=== PATIENT | male | born 1950 | race Caucasian/White ===

== ENCOUNTER 2017-08-18 05:55 | Inpatient (IN) | payer OTHER, MEDICARE ==
[~2017-08-18] VITALS: Ht 195.6 cm; Wt 119.0 kg
[2017-08-18 06:45] VITALS: BP 130/82
[2017-08-18] MEDS ORDERED: THROMBIN 5,000 UNIT VIAL TP ONE (07:07)
[2017-08-18] MEDS ORDERED: LIDOCAINE/PF 0.5% ,50ML ONE (07:07)
[2017-08-18] MEDS ORDERED: EPINEPHRINE 1 MG/ML, 1ML ONE (07:08)
[2017-08-18] MEDS ORDERED: VANCOMYCIN 1,000 MG ONE (07:08)
[2017-08-18] MEDS ORDERED: LISI-170 PO (07:17)
[2017-08-18] MEDS ORDERED: MELO15TA24 PO (07:18)
[2017-08-18] MEDS ORDERED: PROPOFOL 50 ML ONE (07:20)
[2017-08-18] MEDS ORDERED: FENTANYL PF 250 MCG/5ML ONE (07:20)
[2017-08-18] MEDS ORDERED: KETAMINE 10 MG/ML, 20ML ONE (07:20)
[2017-08-18] MEDS ORDERED: MIDAZOLAM 1 MG/ML, 2ML ONE (07:20)
[2017-08-18] MEDS ORDERED: LIDOCAINE GEL 2%, 5ML ONE (07:23)
[2017-08-18] MEDS ORDERED: LACTATED RINGERS 1,000 ML IV SCH (07:29)
[2017-08-18] MEDS ORDERED: hydrALAzine 20 MG/ML, 1ML IV PRN (07:30)
[2017-08-18] MEDS ORDERED: DIAZEPAM 5 MG/ML, 2ML IVPush PRN (07:30)
[2017-08-18] MEDS ORDERED: PROMETHAZINE 25 MG/ML, 1ML IV PRN (07:30)
[2017-08-18] MEDS ORDERED: ONDANSETRON 2MG/ML, 2ML IVPush PRN (07:30)
[2017-08-18] MEDS ORDERED: OXYcodone 5 MG/5 ML ORAL.SOL UDC PO PRN (07:30)
[2017-08-18] MEDS ORDERED: MEPERIDINE/PF 25MG/0.5ML IVPush PRN (07:30)
[2017-08-18] MEDS ORDERED: METOCLOPRAMIDE 5 MG/ML, 2ML IV PRN (07:30)
[2017-08-18] MEDS ORDERED: ALBUTEROL/IPRATROPIUM 2.5MG/0.5MG, 3 ML NPPB PRN (07:30)
[2017-08-18] MEDS ORDERED: LORazepam 2 MG/ML, 1ML IVPush PRN (07:30)
[2017-08-18] MEDS ORDERED: MIDAZOLAM 1 MG/ML, 2ML IV PRN (07:30)
[2017-08-18] MEDS ORDERED: HYDROmorphone 1 MG/ML, 1ML IV PRN (07:30)
[2017-08-18] MEDS ORDERED: LABETALOL 5MG/ML, 20ML IV PRN (07:30)
[2017-08-18] MEDS ORDERED: ACETAMINOPHEN 325 MG TABLET PO PRN (07:30)
[2017-08-18] MEDS ORDERED: FENTANYL PF 100 MCG/2ML IV PRN (07:30)
[2017-08-18] MEDS ORDERED: ROCURONIUM 10 MG/ML,10ML ONE (07:44)
[2017-08-18] MEDS ORDERED: DEXAMETHASONE 4 MG/ML, 1ML ONE (07:44)
[2017-08-18] MEDS ORDERED: PHENYLEPHRINE 10 MG/ML ONE (07:44)
[2017-08-18] MEDS ORDERED: CEFAZOLIN 1,000 MG ONE (07:44)
[2017-08-18] MEDS ORDERED: SUCCINYLCHOLINE 20 MG/ML, 10ML ONE (07:44)
[2017-08-18] MEDS ORDERED: ONDANSETRON 2MG/ML, 2ML ONE (07:44)
[2017-08-18] MEDS ORDERED: PROPOFOL 10 MG/ML, 50ML ONE (07:44)
[2017-08-18] MEDS ORDERED: EPHEDRINE 50 MG/ML, 1ML ONE (08:02)
== END 2017-08-18 10:55 | disposition home or self-care (01) | DRG 552 ==
LOC: ORIP 05:55
PROVIDERS: ADMIT Orthopaedic Surgery Orthopaedic Surgery of the Spine; ATTEND Orthopaedic Surgery Orthopaedic Surgery of the Spine
PROC: 4A11X4G Monitoring of Peripheral Nervous Electrical Activity, Intraoperative, External Approach (ICD-10-PCS; principal; 2017-08-18 07:30)
DX: M48.02 Spinal stenosis, cervical region (principal); M47.12 Other spondylosis with myelopathy, cervical region; I10 Essential (primary) hypertension; M47.22 Other spondylosis with radiculopathy, cervical region; Z53.8 Procedure and treatment not carried out for other reasons
CPT/HCPCS: 95938; 95941; J0171; J0690; J1100; J2001; J2250; J2405; J2704; J3010; J3370; J0330; J2370; J7120

== ENCOUNTER 2017-08-24 05:36 | Inpatient (IN) | payer OTHER, MEDICARE ==
[~2017-08-24] VITALS: Ht 195.6 cm; Wt 117.5 kg
[~2017-08-24 05:36] MED LIST: LISI-170 PO; MELO15TA24 PO
[2017-08-24] MEDS ORDERED: LACTATED RINGERS 1,000 ML IV SCH (06:15)
[2017-08-24 06:19] VITALS: BP 136/86
[2017-08-24] MEDS ORDERED: THROMBIN 5,000 UNIT VIAL TP ONE (06:50)
[2017-08-24] MEDS ORDERED: VANCOMYCIN 1,000 MG ONE (06:50)
[2017-08-24] MEDS ORDERED: EPINEPHRINE 1 MG/ML, 1ML ONE (06:50)
[2017-08-24] MEDS ORDERED: LIDOCAINE/PF 0.5% ,50ML ONE (06:50)
[2017-08-24] MEDS ORDERED: KETAMINE 10 MG/ML, 20ML ONE (07:11)
[2017-08-24] MEDS ORDERED: MIDAZOLAM 1 MG/ML, 2ML ONE (07:11)
[2017-08-24] MEDS ORDERED: PROPOFOL 50 ML ONE ×6 (07:11→10:21)
[2017-08-24] MEDS ORDERED: FENTANYL PF 250 MCG/5ML ONE (07:12)
[2017-08-24] MEDS ORDERED: REMIFENTANIL 2 MG ONE ×3 (07:12→10:45)
[2017-08-24] MEDS ORDERED: ONDANSETRON 2MG/ML, 2ML ONE (07:14)
[2017-08-24] MEDS ORDERED: CEFAZOLIN 1,000 MG ONE ×2 (07:14→07:21)
[2017-08-24] MEDS ORDERED: PROPOFOL 10 MG/ML, 20ML ONE ×3 (07:14→11:17)
[2017-08-24] MEDS ORDERED: LIDOCAINE-MPF 2% ,5ML ONE ×5 (07:14→10:22)
[2017-08-24] MEDS ORDERED: DEXAMETHASONE 4 MG/ML, 1ML ONE ×2 (07:14→07:20)
[2017-08-24] MEDS ORDERED: OXYcodone 5 MG/5 ML ORAL.SOL UDC PO PRN (08:30)
[2017-08-24] MEDS ORDERED: ONDANSETRON 2MG/ML, 2ML IVPush PRN (08:30)
[2017-08-24] MEDS ORDERED: MIDAZOLAM 1 MG/ML, 2ML IV PRN (08:30)
[2017-08-24] MEDS ORDERED: hydrALAzine 20 MG/ML, 1ML IV PRN (08:30)
[2017-08-24] MEDS ORDERED: HYDROmorphone 1 MG/ML, 1ML IV PRN (08:30)
[2017-08-24] MEDS ORDERED: DIAZEPAM 5 MG/ML, 2ML IVPush PRN (08:30)
[2017-08-24] MEDS ORDERED: MEPERIDINE/PF 25MG/0.5ML IVPush PRN (08:30)
[2017-08-24] MEDS ORDERED: FENTANYL PF 100 MCG/2ML IV PRN (08:30)
[2017-08-24] MEDS ORDERED: ACETAMINOPHEN 325 MG TABLET PO PRN (08:30)
[2017-08-24] MEDS ORDERED: ALBUTEROL/IPRATROPIUM 2.5MG/0.5MG, 3 ML NPPB PRN (08:30)
[2017-08-24] MEDS ORDERED: PROMETHAZINE 25 MG/ML, 1ML IV PRN (08:30)
[2017-08-24] MEDS ORDERED: METOCLOPRAMIDE 5 MG/ML, 2ML IV PRN (08:30)
[2017-08-24] MEDS ORDERED: HYDROmorphone 2 MG/ML, 1ML ONE (11:19)
[2017-08-24] MEDS ORDERED: LABETALOL 5MG/ML, 20ML ONE (11:51)
[2017-08-24] MEDS ORDERED: FENTANYL PF 100 MCG/2ML ONE (11:52)
[2017-08-24] MEDS: LABETALOL 5MG/ML, 20ML IV PRN ×2 (12:04→12:14)
[2017-08-24] MEDS ORDERED: ACETAMINOPHEN 650 MG/20.3 ML UDC ONE (12:21)
[2017-08-24 13:20] VITALS: BP 144/89
[2017-08-24] MEDS ORDERED: PROMETHAZINE 25 MG/ML, 1ML IM PRN (14:00)
[2017-08-24] MEDS ORDERED: MAGNESIUM HYDROXIDE 8%, 30ML UDC PO PRN (14:00)
[2017-08-24] MEDS ORDERED: HYDROcodone/APAP 10/325 MG TABLET PO PRN (14:00)
[2017-08-24] MEDS ORDERED: ONDANSETRON 2MG/ML, 2ML IV PRN (14:00)
[2017-08-24] MEDS ORDERED: BISACODYL 10 MG SUPP PR PRN (14:00)
[2017-08-24] MEDS ORDERED: morphine SULFATE 10 MG/ML, 1ML IV PRN (14:00)
[2017-08-24] MEDS: DEXAMETHASONE 4 MG/ML, 1ML IV SCH ×2 (14:16→19:49)
[2017-08-24] MEDS: LABETALOL 5MG/ML, 20ML IV SCH ×2 (14:23→22:29)
[2017-08-24] MEDS: D5%-0.9% NACL+KCL 20MEQ 1,000 ML IV SCH ×2 (14:23→23:43)
[2017-08-24] MEDS ORDERED: SUCCINYLCHOLINE 20 MG/ML, 10ML ONE (16:30)
[2017-08-24] MEDS ORDERED: EPHEDRINE 50 MG/ML, 1ML ONE (16:30)
[2017-08-24] MEDS ORDERED: ROCURONIUM 10 MG/ML,10ML ONE (16:30)
[2017-08-24] MEDS: CEFAZOLIN PMX 2GM/50ML 50 ML IVPB SCH ×2 (16:42→23:42)
[2017-08-24 19:50] VITALS: BP 135/76
[2017-08-24 21:30] VITALS: BP 135/75
[2017-08-24] MEDS: HYDROcodone/APAP 5/325 TABLET PO PRN (23:47)
[2017-08-24 23:54] VITALS: BP 154/84
[2017-08-25] MEDS: HYDROcodone/APAP 5/325 TABLET PO PRN (01:02)
[2017-08-25] MEDS: DEXAMETHASONE 4 MG/ML, 1ML IV SCH (02:15)
[2017-08-25 03:41] VITALS: BP 123/66
[2017-08-25] MEDS: LABETALOL 5MG/ML, 20ML IV SCH (06:32)
[2017-08-25 07:10] VITALS: BP 143/72
[2017-08-25] MEDS ORDERED: SENNA/DOCUSATE TABLET PO SCH (09:00)
[2017-08-25] MEDS ORDERED: LISINOPRIL 20 MG TABLET PO SCH (09:00)
[2017-08-25] MEDS: CEFAZOLIN PMX 2GM/50ML 50 ML IVPB SCH (09:14)
[2017-08-25] MEDS: D5%-0.9% NACL+KCL 20MEQ 1,000 ML IV SCH (11:06)
[2017-08-25] MEDS ORDERED: MAGNESIUM HYDROXIDE 8%, 30ML UDC PO ONE (12:00)
[2017-08-25 13:00] VITALS: BP 132/74
[2017-08-25] MEDS ORDERED: DEXAMETHASONE 1 MG TABLET PO ONE ×2 (13:00→14:00)
[2017-08-25] MEDS ORDERED: DEXAMETHASONE 4 MG TABLET ONE (13:02)
[2017-08-25] MEDS ORDERED: CEPH-368 PO (14:42)
[2017-08-25] MEDS ORDERED: METH4TAB2 PO (14:42)
[2017-08-25] MEDS ORDERED: HYDR-3240 PO (14:44)
== END 2017-08-25 14:52 | disposition home or self-care (01) | DRG 472 ==
LOC: ORIP 05:36 → 4NOR 13:23 → DCLOUNGE 08-25 14:30
PROVIDERS: ADMIT Orthopaedic Surgery Orthopaedic Surgery of the Spine; ATTEND Orthopaedic Surgery Orthopaedic Surgery of the Spine
PROC: 0RB30ZZ Excision of Cervical Vertebral Disc, Open Approach (ICD-10-PCS; 2017-08-24)
PROC: 4A11X4G Monitoring of Peripheral Nervous Electrical Activity, Intraoperative, External Approach (ICD-10-PCS; 2017-08-24)
PROC: 0RG20A0 Fusion of 2 or more Cervical Vertebral Joints with Interbody Fusion Device, Anterior Approach, Anterior Column, Open Approach (ICD-10-PCS; principal; 2017-08-24 07:30)
DX: M48.02 Spinal stenosis, cervical region (principal); M50.01 Cervical disc disorder with myelopathy, high cervical region; M54.12 Radiculopathy, cervical region
CPT/HCPCS: 72040; 95938; 95941; C1713; J0171; J0690; J1100; J1170; J2001; J2250; J2405; J2704; J3010; J3370; J3490; C1762; J0330; J3480; J7120